=== PATIENT | female | born 1980 | race Two or more races ===

== ENCOUNTER 2023-08-26 03:56 | Day surgery (SDC) | payer BC ==
[2023-08-16 13:27] VITALS: BMI 23.6
[2023-08-26] MEDS ORDERED: ONDANSETRON 4 MG/2 ML VIAL IVPUSH PRN (12:25)
[2023-08-26] MEDS ORDERED: PROPOFOL 20 ML ONE (12:27)
[2023-08-26] MEDS ORDERED: MIDAZOLAM HCL 2 MG/2 ML SINGLE DOSE VIAL ONE (12:27)
[2023-08-26] MEDS ORDERED: FENTANYL CITRATE/PF 50 MCG/ML VIAL ONE (12:27)
[2023-08-26] MEDS ORDERED: LIDOCAINE HCL/PF 2% SDV 5ML VIAL ONE (12:29)
[2023-08-26] MEDS ORDERED: LACTATED RINGERS SOLUTION 1,000 ML IV SCH (12:30)
[2023-08-26] MEDS ORDERED: KETOROLAC TROMETHAMINE 30 MG/1 ML VIAL ONE (13:13)
[2023-08-26] MEDS ORDERED: DEXAMETHASONE SOD PHOSPHATE 4 MG/1 ML VIAL ONE (13:13)
[2023-08-26] MEDS ORDERED: ceFAZolin SODIUM 1 GM VIAL ONE (13:13)
[2023-08-26] MEDS: ceFAZolin SODIUM 1 GM VIAL IVPB ONE (13:15)
[2023-08-26 15:45] VITALS: BP 98/58; PULSE 62; RESP 18; TEMP 97.6
== END 2023-08-26 16:08 | disposition home or self-care (01) ==
LOC: JASU-SURG 03:56
PROVIDERS: ATTEND Obstetrics & Gynecology
PROC: 0UDB8ZX Extraction of Endometrium, Via Natural or Artificial Opening Endoscopic, Diagnostic (ICD-10-PCS; principal; 2023-08-26 12:00)
DX: N84.0 Polyp of corpus uteri (principal); N92.4 Excessive bleeding in the premenopausal period
CPT/HCPCS: 81025; 88305-TC; 94760